=== PATIENT | female | born 2000 | race Caucasian/White ===

== ENCOUNTER 2021-06-13 22:09 | Inpatient (IN) ==
[2021-06-13 23:03] LABS: Bacteria,Urine Few per hpf (None-Few); Bilirubin,Urine Negative (Negative); Blood,Urine Large (Negative); Clarity,Urine Turbid (Clear); Color,Urine Colorless (Yellow); Glucose,Urine (UA) Normal (Normal); Ketones,Urine Negative (Negative); Leukocyte Esterase,Urine Trace (Negative); Nitrite,Urine Negative (Negative); Protein,Urine 30 mg/dL (Neg-Trace); Specific Gravity,Urine 1.024 (1.010-1.025); Squamous Epithelial Cell,Urine Moderate per hpf (None-Few); Urobilinogen,Urine Normal (Normal)
[2021-06-13 23:22] LABS: Amphetamine Screen,Urine Negative ng/mL (Cutoff=1000); Barbiturate Screen,Urine Negative ng/mL (Cutoff=200); Benzodiazepines Screen,Urine Negative ng/mL (Cutoff=200); Cannabinoid Screen,Urine Positive ng/mL (Cutoff = 50); Cocaine Screen,Urine Negative ng/mL (Cutoff= 300); Opiate Screen,Urine Negative ng/mL (Cutoff=300); Phencyclidine Screen,Urine Negative ng/mL (Cutoff=25)
[2021-06-13 23:30] LABS: Basophils # 0.1 K/mcL (0.0-0.2); Basophils % 0.5 %; Eosinophils # 0.1 K/mcL (0.0-0.6); Eosinophils % 1.4 %; Hematocrit 41.8 % (35.3-44.9); Hemoglobin 13.7 g/dL (11.5-15.4); Immature Granulocytes % 0.2 % (0-4); Lymphocytes # 2.9 K/mcL (0.6-4.6); Lymphocytes % 31.2 %; Mean Corpuscular HGB Conc 32.8 g/dL (31.6-35.5); Mean Corpuscular Hemoglobin 31.4 pg (28.0-33.3); Mean Corpuscular Volume 95.9 fL (83.0-100.0); Mean Platelet Volume 11.1 fL (9.4-12.4); Monocytes # 0.6 K/mcL (0.0-1.3); Monocytes % 6.9 %; Neutrophils # 5.5 K/mcL (1.6-8.9); Platelet Count 339 K/mcL (140-400); Red Blood Count 4.36 M/mcL (3.82-4.97); Red Cell Distribution Width 11.9 % (11.5-14.5); Segmented Neutrophils % 59.8 %; White Blood Count 9.2 K/mcL (4.3-11.1)
[2021-06-14 00:07] LABS: Acetaminophen < 10 mcg/mL (10-20); BUN/Creatinine Ratio 13 (6-26); Blood Urea Nitrogen 11 mg/dL (6-20); Calcium 9.6 mg/dL (8.6-10.3); Carbon Dioxide 24 mEq/L (23-29); Chloride 107 mEq/L (98-107); Ethanol < 10 mg/dL (Less than 10); Glucose 110 mg/dL (70-105); Osmolality,Calculated 288 (280-300); Potassium 3.9 mEq/L (3.5-5.1); Salicylate < 2.5 mg/dL (15.0-30.0); Sodium 139 mEq/L (136-145); eGFR For African Americans > 60 (> 60); eGFR For Non-African Americans > 60 (> 60)
[2021-06-14 03:08] LABS: Influenza A PCR Negative (Negative); Influenza B PCR Negative (Negative); Resp. Syncytial Virus PCR Negative (Negative)
[2021-06-14 03:10] LABS: SARS-CoV-2 by PCR (In House) Negative (Negative)
[2021-06-14] MEDS ORDERED: Ibuprofen 400 MG TABLET PO PRN (03:24)
[2021-06-14] MEDS ORDERED: haloperidoL 5 MG TABLET PO PRN (03:24)
[2021-06-14] MEDS ORDERED: QUEtiapine Fumarate 25 MG TABLET PO PRN (03:24)
[2021-06-14] MEDS ORDERED: Acetaminophen 325 MG TABLET PO PRN (03:24)
[2021-06-14] MEDS ORDERED: Haloperidol Lactate 5 MG/ML VIAL IM PRN (04:00)
[2021-06-14] MEDS ORDERED: *HR* LORazepam 2 MG/ML VIAL IM PRN (04:00)
[2021-06-14] MEDS ORDERED: *HR* LORazepam 1 MG TABLET PO PRN (04:00)
[2021-06-14] MEDS: hydrOXYzine pamoate 25 MG CAPSULE PO PRN ×2 (04:36→20:12)
[2021-06-14] MEDS: Sulfamethoxazole/Trimeth DS 1 EACH TABLET PO SCH ×2 (09:07→20:12)
[2021-06-14] MEDS: FLUoxetine 20 MG CAPSULE PO SCH (12:16)
[2021-06-14] MEDS: OXcarbazepine 150 MG TABLET PO SCH (12:17)
[2021-06-14] MEDS: cloNIDine HCL 0.1 MG TABLET PO SCH (20:12)
[2021-06-15] MEDS: OXcarbazepine 150 MG TABLET PO SCH (09:48)
[2021-06-15] MEDS: FLUoxetine 20 MG CAPSULE PO SCH (09:48)
[2021-06-15] MEDS: Sulfamethoxazole/Trimeth DS 1 EACH TABLET PO SCH ×2 (09:49→20:24)
[2021-06-15] MEDS: cloNIDine HCL 0.1 MG TABLET PO SCH (20:24)
[2021-06-15] MEDS: hydrOXYzine pamoate 25 MG CAPSULE PO PRN (20:24)
[2021-06-16] MEDS: Sulfamethoxazole/Trimeth DS 1 EACH TABLET PO SCH ×2 (08:06→20:52)
[2021-06-16] MEDS: FLUoxetine 20 MG CAPSULE PO SCH (08:06)
[2021-06-16] MEDS: OXcarbazepine 150 MG TABLET PO SCH (08:06)
[2021-06-16] MEDS: hydrOXYzine pamoate 25 MG CAPSULE PO PRN (20:52)
[2021-06-16] MEDS: cloNIDine HCL 0.1 MG TABLET PO SCH (20:52)
[2021-06-17] MEDS: OXcarbazepine 150 MG TABLET PO SCH (08:12)
[2021-06-17] MEDS: Sulfamethoxazole/Trimeth DS 1 EACH TABLET PO SCH (08:12)
[2021-06-17] MEDS: FLUoxetine 20 MG CAPSULE PO SCH (08:12)
[2021-06-17 08:54] VITALS: BP 127/79; PULSE 88; TEMP 97.7; O2SAT 100
== END 2021-06-17 11:30 | disposition home or self-care (01) | DRG 753 ==
LOC: EMEROOARM 22:09 → 1ANU 06-14 03:23 → SUATTDRO 06-14 03:23 → 1ANU 06-14 04:00
PROVIDERS: ADMIT Psychiatry & Neurology Psychiatry; ATTEND Psychiatry & Neurology Psychiatry